=== PATIENT | male | born 1960 | race Caucasian/White ===

== ENCOUNTER 2023-10-23 15:34 | Outpatient (CLI) | payer BC, MEDICARE, SELFPAY ==
--- NOTE | 2023-10-23 16:00 | CRLHL7_ITS ---
For Patients: As a result of the Cures Act, medical imaging exams and procedure reports are released immediately into your electronic medical record. You may view this report before your referring provider. If you have questions, please contact your health care provider. INDICATION: Peripheral dural disease. History of right carotid endarterectomy. TECHNIQUE: The carotid circulations and the vertebral arteries in the neck were examined with bro-scale ultrasound, color-flow and Doppler spectral analysis. Degrees of stenosis were determined using SRU 2002 Consensus Panel Criteria. COMPARISON: None. FINDINGS: Right: Atherosclerosis: Present. Right internal carotid artery velocity: 87 cm/sec. Right ICA/CCA ratio: 1.4. Right vertebral artery: Antegrade. Right subclavian artery: Unremarkable. Spectral waveforms are normal. Left: Atherosclerosis: Present. Left internal carotid artery velocity: 228 cm/sec. Left ICA/CCA ratio: 2.7. Left vertebral artery: Antegrade. Left subclavian artery: Unremarkable. Spectral waveforms are normal. IMPRESSION: 1. Bilateral carotid artery atherosclerosis. 2. Estimated stenosis in the right internal carotid artery is less than 50% by SRU 2002 Consensus Panel Criteria. 3. Estimated stenosis in the left internal carotid artery is 50-69% by SRU 2002 Consensus Panel Criteria. Dictated by Shay Morrow MD @ 10/25/2023 2:22:02 PM (Electronically Signed)
== END 2023-10-23 15:35 | disposition home or self-care (01) ==
PROVIDERS: PCP Internal Medicine; Visit Provider Internal Medicine
DX: I77.9 Disorder of arteries and arterioles, unspecified (principal); I65.23 Occlusion and stenosis of bilateral carotid arteries; I65.21 Occlusion and stenosis of right carotid artery; I10 Essential (primary) hypertension; I35.0 Nonrheumatic aortic (valve) stenosis
CPT/HCPCS: 93880